=== PATIENT | male | born 1965 | race Caucasian/White ===

== ENCOUNTER 2017-02-17 14:29 | Emergency (ER) | payer SELFPAY ==
[~2017-02-17] VITALS: Ht 160 cm; Wt 55.7 kg
[~2017-02-17 14:29] MED LIST: BACT800T5 PO; CEPH500C3 PO
[2017-02-17 14:40] VITALS: BP 131/88; PULSE 94; RESP 16; TEMP 98.3; O2SAT 97
== END 2017-02-17 15:02 | disposition left against medical advice (07) ==
LOC: PHED 14:29
DX: Z53.21 Procedure and treatment not carried out due to patient leaving prior to being seen by health care provider (principal)
CPT/HCPCS: 99281

== ENCOUNTER 2017-02-24 16:00 | Emergency (ER) | payer SELFPAY ==
[~2017-02-24] VITALS: Ht 162.6 cm; Wt 55.0 kg
--- NOTE | 2017-02-24 16:23 | PD ---
HPI Chief Complaint: Skin Problem Time Seen by Provider: 16:23 Travel History International Travel<30 days: No Contact w/Intl Traveler<30days: No Traveled to known affect area: No History of Present Illness HPI 51-year-old homeless male presents to emergency department with one week history of worsening skin rash with excoriation. Patient states it started on his legs is moved upward now is all over. He states it is not in his groin at this time. Patient denies history of MRSA. Patient denies fever, chills, or other symptoms. Patient is allergic to codeine. PFSH Past Medical History Hx Anticoagulant Therapy: No Cardiovascular Problems: No Chemotherapy: No Cerebrovascular Accident: Yes Diabetes: No Diminished Hearing: No Hypertension: Yes Respiratory: No Social History Alcohol Use: Yes (DAILY, HEAVILY, "I'VE BEEN TREATING THIS RASH WITH ALCOHOL") Tobacco Use: Yes Substance Use: Yes Allergies-Medications (Allergen,Severity, Reaction): Coded Allergies: Codeine (Verified Allergy, Severe, "DOESN'T REMEMBER", 02/24/17) Reported Meds & Prescriptions Reported Meds & Active Scripts Active Bactroban Topical (Mupirocin) 2 % Cream 1 Applic TOPICAL BID Bactrim DS (Sulfamethoxazole-Trimethoprim) 800-160 Mg Tab 1 Tab PO BID Sklice Topical (Ivermectin (Pediculicide) Topical) 0.5% Lotn 60 Gm TOPICAL ONCE Review of Systems Except as stated in HPI: all other systems reviewed are Neg General / Constitutional: No: Fever Eyes: No: Visual changes HENT: No: Headaches Cardiovascular: No: Chest Pain or Discomfort Respiratory: No: Shortness of Breath Gastrointestinal: No: Abdominal Pain Genitourinary: No: Dysuria Musculoskeletal: No: Pain Skin: Positive Rash, Positive Itching, Positive Lesions (history of present illness.) Neurologic: No: Weakness Psychiatric: No: Depression Endocrine: No: Polydipsia Hematologic/Lymphatic: No: Easy Bruising Physical Exam Narrative GENERAL: Patient appears in mild to moderate distress. SKIN: Warm and dry. Normal color. Normal turgor. Patient has multiple superficial excoriated lesions on all extremities, face, anterior trunk. No signs of significant cellulitis or abscess. No draining lesions. HEAD: Atraumatic. Normocephalic. EYES: Pupils equal and round. No scleral icterus. No injection or drainage. ENT: No nasal bleeding or discharge. Mucous membranes pink and moist. Pharynx is clear. NECK: Trachea midline. Neck is supple nontender. CARDIOVASCULAR: Regular rate and rhythm. RESPIRATORY: No accessory muscle use. Clear to auscultation. Breath sounds equal bilaterally. MUSCULOSKELETAL: Extremities without clubbing, cyanosis, or edema. No obvious deformities. NEUROLOGICAL: Awake and alert. No obvious cranial nerve deficits. Motor grossly within normal limits. Five out of 5 muscle strength in the arms and legs. Normal speech. PSYCHIATRIC: Appropriate mood and affect; insight and judgment normal. Data Data Last Documented VS Vital Signs Date Time Temp Pulse Resp B/P Pulse Ox O2 Delivery O2 Flow Rate FiO2 02/24/17 16:28 98.7 88 16 134/64 96 MDM Medical Decision Making Medical Screen Exam Complete: Yes Emergency Medical Condition: Yes Medical Record Reviewed: Yes Differential Diagnosis Scabies. MRSA. Cellulitis. Skin excoriation. Narrative Course Patient is medically stable at time of exam. Patient will be covered with ivermectin ointment as directed with 1 refill. Patient given Bactrim DS twice a day 7 days. Patient also sees Bactroban and all his lesions twice daily for the next week. Patient follow with his primary care physician or return to emergency department as needed. Diagnosis Primary Impression: Scabies infestation Additional Impressions: Excoriation Cellulitis Qualified Code: L03.90 - Cellulitis, unspecified cellulitis site Referrals: [facility] Patient Instructions: Cellulitis (ED), General Instructions, Scabies (ED) Scripts Mupirocin Topical (Bactroban Topical)2 % Cream1 Applic TOPICAL BID #1 TUBE Prov:Jada Kendall DO 02/24/17 Sulfamethoxazole-Trimethoprim (Bactrim DS)800-160 Mg Tab1 Tab PO BID #14 TAB Prov:Jada Kendall DO 02/24/17 Ivermectin (Pediculicide) Topical (Sklice Topical)0.5% Lotn60 Gm TOPICAL ONCE # 60 GM Ref 1 Prov:Jada Kendall DO 02/24/17 Disposition: 01 DISCHARGE HOME Condition: Stable Lawrence William Feb 24, 2017 16:23
[2017-02-24 16:28] VITALS: BP 134/64; PULSE 88; RESP 16; TEMP 98.7; O2SAT 96
[2017-02-24] MEDS ORDERED: IVER0.5L TOPICAL (16:29)
[2017-02-24] MEDS ORDERED: MUPI2%T TOPICAL (16:29)
[2017-02-24] MEDS ORDERED: BACT800T5 PO (16:29)
== END 2017-02-24 16:47 | disposition home or self-care (01) ==
LOC: PHEFT 16:00
DX: B86 Scabies (principal); S80.812A Abrasion, left lower leg, initial encounter; S80.811A Abrasion, right lower leg, initial encounter; L03.90 Cellulitis, unspecified; I10 Essential (primary) hypertension; Z72.0 Tobacco use; Z59.0 Homelessness
CPT/HCPCS: 99282

== ENCOUNTER 2017-03-01 00:31 | Emergency (ER) | payer SELFPAY ==
[~2017-03-01] VITALS: Ht 162.6 cm; Wt 54.6 kg
[~2017-03-01 00:31] MED LIST changes: -CEPH500C3 PO; +IVER0.5L TOPICAL; +MUPI2%T TOPICAL
[2017-03-01 00:38] VITALS: BP 112/81; PULSE 94; RESP 16; TEMP 98.3; O2SAT 97
[2017-03-01] MEDS ORDERED: BACT800T5 PO (02:23)
--- NOTE | 2017-03-01 02:25 | PD ---
HPI Chief Complaint: Skin Problem Time Seen by Provider: 01:01 Travel History International Travel<30 days: No Contact w/Intl Traveler<30days: No Traveled to known affect area: No History of Present Illness HPI The patient is a 51-year-old male that states he has been digging out "little black bugs" which she thinks are chiggers from the skin. This started 2 weeks ago. He was given Bactrim DS to help prevent skin infections. He is homeless and sleeps outside. He tried nail lithuanian remover but this did not work. PFSH Past Medical History Hx Anticoagulant Therapy: No Cardiovascular Problems: No Chemotherapy: No Cerebrovascular Accident: Yes Diabetes: No Diminished Hearing: No Hypertension: Yes Respiratory: No Tetanus Vaccination: Never Vaccinated Past Surgical History Other Surgery: Yes (CERVICAL , PALADAR MOUTH ) Social History Alcohol Use: Yes (DAILY, HEAVILY, "I'VE BEEN TREATING THIS RASH WITH ALCOHOL") Tobacco Use: Yes (1 PPD) Substance Use: Yes (COCAINE; DENIES PRESENTLY) Allergies-Medications (Allergen,Severity, Reaction): Coded Allergies: Codeine (Verified Allergy, Severe, "DOESN'T REMEMBER", 03/01/17) Reported Meds & Prescriptions Reported Meds & Active Scripts Active Bactrim DS (Sulfamethoxazole-Trimethoprim) 800-160 Mg Tab 1 Tab PO BID Review of Systems Except as stated in HPI: all other systems reviewed are Neg Physical Exam Narrative GENERAL: Well-nourished, well-developed patient in minimal apparent distress with his skin lesions. His vital signs are normal. The patient exhibits poor hygiene SKIN: Focused skin assessment warm/dry. Multiple areas on legs and arms are present where the patient has dug in 2 lesions and created a break in the skin. None of the lesions at this time are infected. There are no lesions between the fingernails and around the belt line. HEAD: Normocephalic. EYES: No scleral icterus. No injection or drainage. NECK: Supple, trachea midline. No JVD or lymphadenopathy. CARDIOVASCULAR: Regular rate and rhythm without murmurs, gallops, or rubs. RESPIRATORY: Breath sounds equal bilaterally. No accessory muscle use. GASTROINTESTINAL: Abdomen soft, non-tender, nondistended. MUSCULOSKELETAL: No cyanosis, or edema. BACK: Nontender without obvious deformity. No CVA tenderness. Data Data Last Documented VS Vital Signs Date Time Temp Pulse Resp B/P Pulse Ox O2 Delivery O2 Flow Rate FiO2 03/01/17 00:38 98.3 94 16 112/81 97 Room Air MDM Medical Decision Making Medical Screen Exam Complete: Yes Emergency Medical Condition: Yes Medical Record Reviewed: Yes Differential Diagnosis Chigger bites, scabies, impetigo, no-see-em bites, mosquito bites Narrative Course The patient's description of him digging out bugs underneath the skin fits the pattern of chigger bites. Moreover, they are not around the belt line or between the fingers. Diagnosis Primary Impression: Chigger bites Additional Instructions: A hot shower would help these lesions and help prevent infection. Also, use antibacterial ointment. The Septra is one tablet twice daily for 10 days. Med/Other Pt SpecificInfo: Prescription(s) given Scripts Sulfamethoxazole-Trimethoprim (Bactrim DS)800-160 Mg Tab1 Tab PO BID #20 TAB Ref 0 Prov:Massimo Dale MD 03/01/17 Disposition: 01 DISCHARGE HOME Condition: Stable Massimo Dale MD Mar 01, 2017 02:24
== END 2017-03-01 03:39 | disposition home or self-care (01) ==
LOC: PHED 00:31
DX: B88.0 Other acariasis (principal); K40.90 Unilateral inguinal hernia, without obstruction or gangrene, not specified as recurrent; Z59.0 Homelessness
CPT/HCPCS: 99282

== ENCOUNTER 2017-05-14 17:17 | Emergency (ER) | payer SELFPAY ==
[~2017-05-14] VITALS: Ht 167.6 cm; Wt 58.0 kg
[~2017-05-14 17:17] MED LIST changes: -IVER0.5L TOPICAL; -MUPI2%T TOPICAL
[2017-05-14 17:20] VITALS: BP 132/95; PULSE 86; RESP 16; TEMP 97.9; O2SAT 100
[2017-05-14] MEDS ORDERED: BACT800T5 PO (19:59)
[2017-05-14] MEDS ORDERED: PERM5CRE11 TOPICAL (19:59)
--- NOTE | 2017-05-14 20:27 | PD ---
HPI Chief Complaint: Skin Problem Time Seen by Provider: 19:50 Travel History International Travel<30 days: No Contact w/Intl Traveler<30days: No Traveled to known affect area: No History of Present Illness HPI 51-year-old male presents to the emergency room for evaluation of itchy rash to his entire body. Patient is homeless and states he has had this rash for the past 6 months. States last time he was arrested the police officers took away his prescription for Bactrim because it did not match his name and address. States in the homeless camp where he is staying everybody has similar symptoms. Itching is worst at night. He denies fever, chills, nausea, vomiting. PFSH Past Medical History Hx Anticoagulant Therapy: No Anxiety: Yes Cardiovascular Problems: Yes (HTN) Chemotherapy: No Cerebrovascular Accident: Yes Diabetes: No Diminished Hearing: No Hypertension: Yes Inguinal Hernia: Yes Insomnia: Yes Respiratory: No Tetanus Vaccination: < 5 Years Influenza Vaccination: No Past Surgical History Other Surgery: Yes (Cervical, mouth) Social History Alcohol Use: Yes ("When I can't find any weed") Tobacco Use: Yes (1 PPD) Substance Use: Yes (H/O cocaine abuse; marijuana "when I can find it") Allergies-Medications (Allergen,Severity, Reaction): Coded Allergies: Codeine (Verified Adverse Reaction, Severe, Memory loss, 05/14/17) Reported Meds & Prescriptions Reported Meds & Active Scripts Active Elimite Topical (Permethrin) 5% Cream 1 Applic TOPICAL ONCE Bactrim DS (Sulfamethoxazole-Trimethoprim) 800-160 Mg Tab 1 Tab PO BID Review of Systems Except as stated in HPI: all other systems reviewed are Neg Physical Exam Narrative GENERAL: Well-nourished, well-developed male in no acute distress. Afebrile. Ambulatory. SKIN: Focused skin assessment warm/dry. Multiple excoriations to bilateral upper and lower extremities, chest, back, and abdomen. There are several breakfast, lunch, dinner signs. There is secondary cellulitis to the right lower, lateral leg. No purulent drainage. HEAD: Normocephalic. EYES: No scleral icterus. No injection or drainage. NECK: Supple, trachea midline. No JVD or lymphadenopathy. CARDIOVASCULAR: Regular rate and rhythm without murmurs, gallops, or rubs. RESPIRATORY: Breath sounds equal bilaterally. No accessory muscle use. Data Data Last Documented VS Vital Signs Date Time Temp Pulse Resp B/P Pulse Ox O2 Delivery O2 Flow Rate FiO2 05/14/17 17:20 97.9 86 16 132/95 100 MDM Medical Decision Making Medical Screen Exam Complete: Yes Emergency Medical Condition: Yes Medical Record Reviewed: Yes Differential Diagnosis Scabies, cellulitis, contusion, abrasion, excoriations, chiggers Narrative Course 51-year-old male presents to the emergency room requesting prescription because the police took away his previous prescription when he got arrested a few weeks ago. Patient has had scabies infestation for the past 6 months because he is homeless. States everyone in his camp is having similar symptoms. Physical exam reveals multiple excoriations with breakfast, lunch, dinner fine. Symptoms could be due to trigger because he is homeless or a scabies infestation. There is some secondary cellulitis to the right lateral lower extremity. Vital signs are stable. No systemic signs of infection. Patient will be discharged with prescription for Bactrim and permethrin. Told to follow up with a primary care physician or return for worsening symptoms. He understands and agrees to plan. Diagnosis Primary Impression: Scabies infestation Additional Impression: Cellulitis Qualified Code: L03.115 - Cellulitis of right lower extremity Referrals: Primary Care Physician Patient Instructions: Cellulitis (ED), General Instructions, Scabies (ED) Departure Forms: Tests/Procedures Additional Instructions: Rest and drink plenty of fluids. Bactrim as directed, until gone. Follow up with a primary care physician. Return to emergency room for worsening symptoms, as discussed. Med/Other Pt SpecificInfo: Prescription(s) given Scripts Permethrin Topical (Elimite Topical)5% Cream1 Applic TOPICAL ONCE #1 TUBE Ref 0 Prov:Joshua Crespo MD 05/14/17 Sulfamethoxazole-Trimethoprim (Bactrim DS)800-160 Mg Tab1 Tab PO BID #20 TAB Ref 0 Prov:Joshua Crespo MD 05/14/17 Disposition: 01 DISCHARGE HOME Condition: Stable Denise Marcano May 14, 2017 20:27
== END 2017-05-14 20:40 | disposition home or self-care (01) ==
LOC: PHED 17:17 → PHEFT 20:40
DX: B86 Scabies (principal); L03.115 Cellulitis of right lower limb; Z59.0 Homelessness
CPT/HCPCS: 99284